=== PATIENT | male | born 1950 | race Caucasian/White ===

== ENCOUNTER 2023-01-15 01:35 | Inpatient (IN) | payer OTHER, BC ==
[2023-01-15] VITALS (7 sets, daily range): BP systolic 98–159
[~2023-01-15] VITALS: Ht 165.1 cm; Wt 75.3 kg
[2023-01-15] MEDS ORDERED: dilTIAZem HCL IVP 5 MG/ML VIAL IVP ONE ×3 (02:00→03:00)
[2023-01-15 02:14] LABS: BASOPHILS % (AUTO) 0.5 % (0.0-2.0); EOSINOPHILS # (AUTO) 0.2 K/uL (0.0-0.4); EOSINOPHILS % (AUTO) 2.6 % (0.0-4.0); HEMATOCRIT 34.6 % (36-54); HEMOGLOBIN 11.6 g/dL (14.0-18.0); LYMPHOCYTES # (AUTO) 3.2 K/uL (1.0-5.5); LYMPHOCYTES % (AUTO) 33.5 % (20.5-51.5); MEAN CORPUSCULAR HEMOGLOBIN 28 pg (27-31); MEAN CORPUSCULAR HGB CONC 34 % (32-36); MEAN CORPUSCULAR VOLUME 84 fL (79.0-98.0); MONOCYTES # (AUTO) 0.7 K/uL (0.0-1.0); NEUTROPHILS # (AUTO) 5.3 K/uL (1.8-7.7); NEUTROPHILS % (AUTO) 56.4 % (40.0-70.0); PLATELET COUNT (AUTO) 194 K/uL (130-430); RED BLOOD CELL COUNT(AUTO) 4.13 MIL/uL (4.2-6.2); WHITE BLOOD COUNT (AUTO) 9.4 K/uL (4.8-10.8)
[2023-01-15] MEDS ORDERED: MORPHINE 4 MG INJ. 4 MG/ML VIAL IVP ONE (02:15)
[2023-01-15] MEDS ORDERED: ONDANSETRON HCL 4 MG/2 ML VIAL IVP ONE (02:15)
[2023-01-15 02:26] LABS: ANION GAP 14 (5-15); CALCIUM 9.2 mg/dL (8.4-11.0); CHLORIDE 100 mmol/L (98-107); CREATININE 1.14 mg/dL (0.55-1.30); GLUCOSE 198 mg/dL (70-99); UREA NITROGEN, BLOOD 14 mg/dL (8-21)
[2023-01-15 02:33] LABS: ALANINE AMINOTRANSFERASE 24 U/L (12-78); ALBUMIN 3.5 g/dL (3.4-4.8); ASPARTATE AMINOTRANSFERASE 24 U/L (10-37); TOTAL BILIRUBIN 0.3 mg/dL (0.0-1.0)
[2023-01-15] MEDS ORDERED: ASPIRIN 325 MG TABLET PO ONE (02:45)
[2023-01-15] MEDS ORDERED: TAMS0.4C96 PO (03:32)
[2023-01-15] MEDS ORDERED: GLIP5TAB26 PO (03:32)
[2023-01-15] MEDS ORDERED: LOSA50TA3 PO (03:32)
[2023-01-15] MEDS ORDERED: METF-380 PO (03:32)
[2023-01-15] MEDS: DILTIAZEM HCL 30 MG TABLET PO SCH ×5 (03:46→23:18)
[2023-01-15] MEDS: CARVEDILOL 6.25 MG TABLET (COREG) PO SCH ×3 (03:47→21:05)
[2023-01-15] MEDS ORDERED: APIXABAN 2.5 MG TABLET PO SCH ×2 (09:00)
[2023-01-15] MEDS ORDERED: LOSARTAN POTASSIUM 50 MG TABLET (COZAAR) PO ONE (09:00)
[2023-01-15] MEDS ORDERED: POTASSIUM CHLORIDE 20 MEQ TAB.PRT.SR PO ONE (09:45)
[2023-01-15] MEDS ORDERED: glipiZIDE XL 5 MG TAB ( GLUCOTROL XL) PO ONE (09:45)
[2023-01-15] MEDS ORDERED: *HEPARIN PER PHARMACY XX ONE (16:15)
[2023-01-15] MEDS ORDERED: HEPARIN SODIUM,PORCINE 3000 UNITS/0.6 ML BOLUS IVP PRN (16:45)
[2023-01-15] MEDS ORDERED: HEPARIN SODIUM,PORCINE 5,000 UNITS/ML VIAL IVP ONE (17:00)
[2023-01-15 17:23] LABS: PROTHROMBIN TIME 10.6 SECS (9.5-12.5)
[2023-01-16] VITALS (12 sets, daily range): BP systolic 117–148
[2023-01-16] MEDS: HEPARIN SODIUM,PORCINE 2000 UNITS/0.4 ML BOLUS IVP PRN ×2 (02:11→16:49)
[2023-01-16] MEDS: HEPARIN 25,000 UNITS in 250 ML PREMIX IV PRN ×3 (02:20→16:51)
[2023-01-16 05:51] LABS: BASOPHILS % (AUTO) 0.5 % (0.0-2.0); EOSINOPHILS # (AUTO) 0.3 K/uL (0.0-0.4); EOSINOPHILS % (AUTO) 3.1 % (0.0-4.0); HEMATOCRIT 32.2 % (36-54); HEMOGLOBIN 10.7 g/dL (14.0-18.0); LYMPHOCYTES # (AUTO) 3.5 K/uL (1.0-5.5); LYMPHOCYTES % (AUTO) 37.7 % (20.5-51.5); MEAN CORPUSCULAR HEMOGLOBIN 28 pg (27-31); MEAN CORPUSCULAR HGB CONC 33 % (32-36); MEAN CORPUSCULAR VOLUME 85 fL (79.0-98.0); MONOCYTES # (AUTO) 0.8 K/uL (0.0-1.0); MONOCYTES % (AUTO) 8.7 % (1.7-9.3); NEUTROPHILS # (AUTO) 4.7 K/uL (1.8-7.7); PLATELET COUNT (AUTO) 184 K/uL (130-430); RED CELL DISTRIBUTION WIDTH 15.1 % (9.0-15.0); WHITE BLOOD COUNT (AUTO) 9.3 K/uL (4.8-10.8)
[2023-01-16] MEDS: DILTIAZEM HCL 30 MG TABLET PO SCH ×2 (06:38→11:49)
[2023-01-16] MEDS ORDERED: INSULIN REGULAR, HUMAN 100 UNITS/ML, 3 ML VIAL (humuLIN R) SUBCUT PRN (06:45)
[2023-01-16] MEDS ORDERED: GLUCOSE (DEXTROSE) ORAL GEL -Adults PO PRN (07:00)
[2023-01-16] MEDS ORDERED: D5W 1,000 ML IV PRN (07:00)
[2023-01-16] MEDS ORDERED: DEXTROSE 50%-WATER 50 ML DISP.SYRIN IVP PRN (07:00)
[2023-01-16 07:03] LABS: ANION GAP 12 (5-15); CALCIUM 8.8 mg/dL (8.4-11.0); CHLORIDE 102 mmol/L (98-107); CREATININE 0.99 mg/dL (0.55-1.30); GLUCOSE 139 mg/dL (70-99); UREA NITROGEN, BLOOD 16 mg/dL (8-21)
[2023-01-16] MEDS ORDERED: LOSARTAN POTASSIUM 50 MG TABLET (COZAAR) PO SCH (09:00)
[2023-01-16] MEDS ORDERED: TAMSULOSIN HCL 0.4 MG CAP PO SCH (09:00)
[2023-01-16] MEDS: CARVEDILOL 6.25 MG TABLET (COREG) PO SCH (09:29)
[2023-01-16] MEDS ORDERED: LOSARTAN POTASSIUM 25 MG TABLET PO SCH (11:42)
[2023-01-16] MEDS ORDERED: CARV3.1246 PO (13:13)
[2023-01-16] MEDS ORDERED: DILTIAZEM HCL 30 MG TABLET PO SCH (21:00)
[2023-01-16] MEDS ORDERED: CARVEDILOL 3.125 MG TABLET (COREG) PO SCH (21:00)
[2023-01-16] MEDS ORDERED: CARVEDILOL 6.25 MG TABLET (COREG) PO SCH (21:00)
[2023-01-17 00:03] VITALS: BP_SYST 136
[2023-01-17] MEDS: HEPARIN 25,000 UNITS in 250 ML PREMIX IV PRN (00:44)
[2023-01-17 08:04] VITALS: BP_SYST 139
[2023-01-17] MEDS ORDERED: LOSARTAN POTASSIUM 25 MG TABLET PO SCH (09:00)
[2023-01-17 09:15] VITALS: BP_SYST 139
== END 2023-01-17 13:35 | disposition short-term general hospital (02) | DRG 282 ==
LOC: SED 01:35 → STU 03:17 → SIC 01-16 05:54 → STU 01-16 12:08
PROVIDERS: ADMIT Specialist; ATTEND Specialist
DX: I48.0 Paroxysmal atrial fibrillation (principal); I21.A1 Myocardial infarction type 2; E11.9 Type 2 diabetes mellitus without complications; I10 Essential (primary) hypertension; E78.5 Hyperlipidemia, unspecified; Z20.822 Contact with and (suspected) exposure to COVID-19; Z79.899 Other long term (current) drug therapy; Z79.01 Long term (current) use of anticoagulants
CPT/HCPCS: 36415; 71045; 80048; 80053; 82962; 83735; 83880; 84443; 84484; 85025; 85379; 85610-TC; 85730-TC; 93005; 93306; 94660; 94760; 96374; 96375; 96376; 99291; G0378; J1644; J2270; J2405; J3490